=== PATIENT | male | born 1985 ===

== ENCOUNTER → 2023-11-16 14:57 | Outpatient (POV) | payer OTHER, SELFPAY ==
[2023-11-16 16:15] VITALS: BP 146/94; PULSE 93; RESP 18; O2SAT 97; BMI 67.9
--- NOTE | 2023-11-16 16:25 | A.OFFVIS_ITS ---
HPI Data of Consult Patient: new to practice Consult date: 11/16/23 Requesting Physician: Chika Johnson APRN Primary Care Provider: VIKY Martinez Consult Narrative Reason for consult: Low back pain, neck pain, upper arm pain History of present illness: Mr. Drummond is a 38 year old male who presents today as a new patient. He is a referral from [facility]. Today he rates his pain a 9 out of 10. Patient states he has pain throughout his neck and upper extremities as well as his low back and abdomen. Patient states this has been going on for years and progressively worsened over time. Patient does describe it as a constant aching, throbbing sensation with numbness and tingling into his extremities. He states it is worse with certain positioning such as walking where it feels like things are just grinding [id number]. Patient denies hide a significant history of sleep apnea and is morbidly obese. He states that due to his he has gone to multiple providers for previous gallbladder surgery as well as umbilical hernia surgery however they all told him he was at too high risk due to his weight. Patient states that at they stated they would do the surgery however he would have to sign a waiver in order releasing them from all liability. Patient states that he did go to the bariatrics and [place] [facility] and both of these declines to do surgery due to same risk. Patient does state that he is on Ozempic and has lost 60 pounds however it is hard to get this medication and he has not worked for upwards of 3 years due to his worsening pain. Patient has been tried on diclofenac and meloxicam with no improvement. Patient states he cannot tolerate gabapentin due to a family history of being very angry when taking it. Patient has continued to have physical therapy however it is worsened his pain. Patient does state that he did recently have a lumbar epidural at the [facility] pain management however they hit a nerve and cause much worse pain than when it started. Patient states that due to this he has reservations regarding getting any additional injections. His Maurizio has been reviewed and is appropriate. CC: Chika Johnson APRN [facility] Disclaimer: The information contained in this section may have been updated after the patient was seen, as this information can be updated by other users. Medical History (Updated 11/16/23 @ 16:33 by Chika Johnson APRN) Gout Hernia HLD (hyperlipidemia) HTN (hypertension) Obesity Family History (Updated 11/16/23 @ 16:10 by Char De Jesus, RN) Other No significant family history Social History (Updated 11/16/23 @ 16:10 by Char De Jesus RN) Smoking Status: Never smoker alcohol intake: never current occupational status: other Travel in the last 8 weeks: None Review of Systems Review of Systems Review of systems:: pertinent systems reviewed and negative unless documented below Review of systems (narrative): Review of Systems: General: No recent weight changes, no fever, no sleep disturbances Respiratory: No cough, no shortness of air, no recurring pulmonary infections Cardiovascular/peripheral vascular: No chest pain, no palpitations, no edema, no shortness of breath Gastrointestinal: No new onset incontinence, normal bowel movements reported Genitourinary: No new onset incontinence Musculoskeletal: Low back pain, neck pain, upper extremity pain Psychiatric: [Normal mood/affect] Neurological: [Denies weakness in extremities], [denies balance issues] Meds Home Medications and Allergies Home Medications Medication Instructions Recorded Confirmed Type allopurinol 300 mg tablet 300 mg PO DAILY 11/16/23 11/16/23 History fluticasone propionate 50 2 mcg intranasal DAILY allergies 11/16/23 11/16/23 History mcg/actuation nasal spray,suspension indomethacin 50 mg capsule 50 mg PO TIDP PRN . 11/16/23 11/16/23 History lisinopril 20 mg tablet 20 mg PO DAILY 11/16/23 11/16/23 History meloxicam 15 mg tablet 15 mg PO DAILY 11/16/23 11/16/23 History rosuvastatin 10 mg tablet 10 mg PO HS 11/16/23 11/16/23 History semaglutide 1 mg/dose (4 mg/3 mL) 1 mg SQ WEEKLY 11/16/23 11/16/23 History subcutaneous pen injector (Ozempic) New Prescriptions to Start Prescriptions: Objective Vital signs: Pulse Resp BP Pulse Ox O2 Del Method 93 H 18 146/94 H 97 Room Air 11/16/23 16:15 11/16/23 16:15 11/16/23 16:15 11/16/23 16:15 11/16/23 16:15 Narrative: Physical Exam: General: Alert and oriented x3, no acute distress, pleasant and cooperative Lungs: Respirations even and unlabored, symmetrical chest expansion Eyes: PERRL Musculoskeletal: Flexion and extension of lumbar [spine] somewhat guarded secondary to pain, [antalgic gait noted] Neurological: Speech clear, no gross sensory deficit Additional findings Additional findings: Lumbar MRI 07/04/2023 Findings: Lumbar spine spine alignment appears unremarkable. Visualized marrow signal unremarkable. Vertebral body heights normal. L4-L5 disc mildly desiccated. Conus terminates at T12-L1 level. No abnormal signal is identified within the conus. Visualized paraspinous soft tissues are without significant abnormality. Limited visualization of intra-abdominal structures unremarkable T12-L3 no significant spinal canal or neuroforaminal stenosis L3-4: Mild broad-based disc bulging no significant foraminal spinal stenosis L4-L5 mild broad-based disc bulging no significant spinal canal or neuroforaminal stenosis L5-S1: Mild facet arthropathy no spinal canal or neural foraminal stenosis Thoracic MRI 03/10/2023 Findings: Focal marrow edema present at T3 superior endplate with tiny focal defect present consistent with acute Schmorl's node. No evidence of additional suspicious marrow signal to suggest fracture or worrisome marrow replacing lesion. Alignment is anatomic without significant listhesis or subluxation. Thoracic spinal cord demonstrates no focal areas of intramedullary signal abnormality accounting for relative paucity of signal at some levels due to patient body habitus. Mild spondylosis changes present with some minimal areas of thoracic disc bulge. No significant resultant spinal canal or neural foraminal impingement X-ray cervical spine 12/12/2022 Findings: Evaluation somewhat limited due to poor visualization on lateral images due to overlying soft tissue, vertebral bodies visualized to the level of C4. Vertebral body heights are maintained without evidence of acute fracture and alignment is anatomic without evidence of listhesis or subluxation. No significant evidence of spondylosis change. Paravertebral soft tissues appear normal Assessment and Plan *Assessment and plan (1) Degenerative disc disease, lumbar: Status: Acute Category: Medical Code(s): M51.36 - Other intervertebral disc degeneration, lumbar region (2) Neck pain: Status: Acute Category: Medical Code(s): M54.2 - Cervicalgia (3) Bilateral arm pain: Status: Acute Category: Medical Code(s): M79.601 - Pain in right arm; M79.602 - Pain in left arm (4) Chronic pain syndrome: Status: Acute Category: Medical Code(s): G89.4 - Chronic pain syndrome Plan Patient is experiencing significant pain and redness. Patient did have limited range of motion of his lumbar spine. I did discuss with patient that he may benefit from additional injections however due to his previous experience at [facility] he would like to wait on this option. I have also discussed with the patient that he may benefit from a compounded cream and that we can take the gabapentin out of this. Patient would like to wait at this time. I have counseled the patient that unfortunately we do not do any scheduled medications for new patients and that we will do interventional such as the injections. Patient acknowledges understanding of this. I have counseled the patient that he is more than welcome to follow-up at his convenience for any additional help that we can provide. Patient has been instructed to contact the clinic with any concerns before the next appointment. Dr. Grossman has reviewed this note and agrees with this plan of care. This note was dictated using voice recognition software and make contain errors or omissions.
== END ==
LOC: SC.PAIN 14:59
PROVIDERS: PCP Physician Assistant; Visit Provider Nurse Practitioner Family
DX: M51.36 Other intervertebral disc degeneration, lumbar region (principal); M54.2 Cervicalgia; M79.601 Pain in right arm; M79.602 Pain in left arm; G89.4 Chronic pain syndrome
CPT/HCPCS: 99202; G0463